=== PATIENT | male | born 1995 | race Two or more races ===

== ENCOUNTER 2024-08-18 11:46 | Emergency (ER) | payer MEDICAID, SELFPAY ==
--- NOTE | 2024-08-18 12:01 | XR_ITS ---
Examination: Testicular sonography complete TECHNIQUE: Multiple high resolution grayscale sonographic images testes, assessment arterial inflow venous outflow Doppler spectral analysis color flow analysis Exam date and time: August 18, 2024 1219 hours INDICATIONS: Onset testicular pain beginning yesterday worse today FINDINGS: Right testis 3.5 x 2.1 x 3.1 cm Epididymis 14 mm Arterial flow testicle. No testicular mass Mild to moderate right hydrocele Left testis 3.8 x 2.1 x 2.7 cm Epididymis 14 mm Arterial flow testicle. No testicular mass Mild hydrocele with debris IMPRESSION: No testicular torsion or testicular mass Bilateral hydroceles as above
[2024-08-18 12:02] VITALS: BP 129/92; PULSE 77; RESP 18; TEMP 36.8; O2SAT 99; BMI 25.2
--- NOTE | 2024-08-18 12:02 | XR_ITS ---
Examination: CT abdomen and pelvis without contrast. Coronal 3-D reconstructions. Sagittal 2-D reconstructions. Date and time of exam:August 18, 2024 1211 hours INDICATIONS: Bilateral testicular pain beginning one week ago CTDI: vol (mGy): 6.07 DLP: (mGycm): 349 Technique: Axial images of the abdomen have been obtained, 3 mm slice thickness Intravenous contrast material has not been administered. Low dose protocols were performed. One or more of the following dose reduction techniques were used; automated exposure control, adjustment of the mA and/or KV according to patient size, use of iterative reconstruction technique. Findings: No focal liver or splenic lesions Contracted gallbladder no pancreatic mass Mild left hydronephrosis however no renal or ureteral calculi No bowel obstruction Normal appendix No diverticulitis No bladder mass or bladder calculi Intact osseous structures IMPRESSION: Mild left hydronephrosis, no renal or ureteral calculi, consider left urinary tract infection
--- NOTE | 2024-08-18 12:02 | PD.EDRME ---
Rapid Medical Screening Exam RME Arrival date/time: 08/18/24 11:46 28-year-old male presents emergency department complaints of testicular pain and abdominal pain ongoing since yesterday morning Chief Complaint: Abdominal Pain Time Seen by Provider: 08/18/24 11:53
[2024-08-18] MEDS: KETOROLAC INJ 30 MG/ML VIAL IM (12:55)
[2024-08-18] MEDS: HYDROcodone/APAP 5/325 TABLET 1 TAB PO ×2 (12:57→19:22)
[2024-08-18 13:09] LABS: Basophils % (Auto) 0 % (0-2.5); Eosinophils # (Auto) 0.2 Thou/mm3 (0.0-0.5); Eosinophils % (Auto) 2 % (0-10); Hematocrit 46.5 % (41.0-53.0); Hemoglobin 15.5 g/dL (13.5-16.0); Immature Granulocytes % (Auto) 0 % (0-0); Immature Granulocytes Auto 0.02 Thou/mm3 (0.00-0.00); Lymphocytes # (Auto) 2.1 Thou/mm3 (1.0-4.8); Lymphocytes % (Auto) 24 % (10-50); Mean Corpuscular HGB Conc 33.3 g/dl (31.0-37.0); Mean Corpuscular Hemoglobin 27.8 pg (25.0-35.0); Mean Corpuscular Volume 84 fL (80-100); Monocytes # (Auto) 0.7 Thou/mm3 (0.0-0.8); Monocytes % (Auto) 8 % (0-12); Neutrophils # (Auto) 5.7 Thou/mm3 (1.8-7.7); Neutrophils % (Auto) 65 % (37-80); Nucleated Red Blood Cell % 0 /100 WBC (0); Platelet Count 261 Thou/mm3 (140-440); RDW Standard Deviation 41.2 fL (35.1-43.9); Red Blood Count 5.57 Miln/mm3 (4.50-5.90); White Blood Count 8.8 Thou/mm3 (3.8-10.6)
[2024-08-18 13:33] LABS: Alanine Aminotransferase 19 U/L (10-49); Albumin, Serum 5.1 gm/dL (3.5-5.0); Albumin/Globulin Ratio 1.6 (1.2-2.2); Alkaline Phosphatase 87 U/L (46-116); Anion Gap 5 (7-16); Aspartate Amino Transferase 24 U/L (0-34); BUN/Creatinine Ratio 9 Ratio (12-20); Bilirubin,Total 0.6 mg/dL (0.3-1.2); Blood Urea Nitrogen 11 mg/dL (9-23); Calcium 10.2 mg/dL (8.3-10.6); Calcium (Corrected) 10.2 mg/dL (8.5-10.1); Chloride 100 mMol/L (98-107); Creatinine (Component) 1.2 mg/dL (0.6-1.3); Estimated Creatinine Clearance 87.1 mL/min (>60); Globulin 3.2 gm/dL (2.3-3.5); Glucose 120 mg/dL (74-106); Lipase 41 U/L (12-53); Osmolality,Calculated 272 (275-295); Sodium 136 mMol/L (136-145); Total Protein 8.3 gm/dL (5.7-8.2); eGFR > 60 See Note
[2024-08-18 17:07] VITALS: BP 132/87; PULSE 64; RESP 16; TEMP 36.8; O2SAT 97
[2024-08-18 17:32] LABS: Collection Type, Urine Clean Catch; Squamous Epithelial Cell,Urine 0 /hpf (0-5)
[2024-08-18 18:25] LABS: Bilirubin,Urine Negative (Negative); Blood,Urine Negative (Negative); Clarity,Urine Clear (Clear/Hazy); Color,Urine Colorless (Lt Yel-Yel); Culture Indicated,Urine Not Indicated; Glucose, Urine Negative (Negative); Ketones,Urine Negative (Negative); Leukocyte Esterase,Urine Negative (Negative); Nitrite,Urine Negative (Negative); Protein,Urine Negative (Neg - Trace); RBC,Urine < 1 /hpf (0-3); Specific Gravity,Urine 1.011 (1.001-1.035); Urobilinogen,Urine Negative mg/dL (0.0-1.0); WBC,Urine < 1 /hpf (0-5)
--- NOTE | 2024-08-18 19:05 | PD.EDABDPN ---
ED Abdominal Pain RME/HPI General Chief Complaint: Abdominal Pain Stated complaint: Abdominal pain, testicular pain Time seen by provider: 08/18/24 11:53 Arrival date/time: 08/18/24 11:46 This is a 28-year-old male that comes in with complaints of diffuse abdominal pain that radiated to his testicle and right groin area. Patient states pain started this morning. Patient denies any trauma. Patient denies any past medical history. Limitations: no limitations RME / HPI RME / HPI narrative: 08/18/24 11:46 28-year-old male presents emergency department complaints of testicular pain and abdominal pain ongoing since yesterday morning Related Data Previous Rx's ?Medication ?Instructions ?Recorded cephalexin 500 mg capsule 500 mg PO TID #21 caps 08/18/24 ibuprofen 800 mg tablet 800 mg PO Q8H #14 tabs 08/18/24 Allergies Allergy/AdvReac Type Severity Reaction Status Date / Time No Known Allergies Allergy Verified 08/18/24 11:53 Review of Systems Review of Systems Systems Reviewed: All systems reviewed, normal except as documented Past Medical History Past Medical History Comments PMH COMMENT: denies ED Exam General Limitations: Present no limitations General appearance: Present alert and in no apparent distress Head Head exam: Present atraumatic Eye Eye exam: Present normal appearance, PERRL and EOMI ENT ENT exam: Present normal exam, normal oropharynx and mucous membranes moist Neck Neck exam: Present normal inspection, full ROM and trachea midline Chest Chest inspection: Present normal inspection and symmetric chest wall rise Respiratory Respiratory exam: Present normal lung sounds bilaterally Cardiovascular Cardiovascular exam: Present regular rate, normal rhythm and normal heart sounds Abdominal Exam Abdominal exam: Present soft exam: Present normal inspection and other (no testicular tenderness, no erythema, no swelling) Extremities Exam Extremities exam: Present normal inspection and full ROM Back Exam Back exam: Present normal inspection and full ROM Neurological Exam Neurological exam: Present alert, oriented X3 and CN II-XII intact Psychiatric Psychiatric exam: Present normal affect and normal mood Skin Skin exam: Present warm, dry, intact and normal color Course Quality Measures none Orders Category Date Time Status CT abdomen pelvis wo con Stat Exams 08/18/24 12:02 Completed US testicular Stat Exams 08/18/24 12:01 Completed CBC Stat Lab 08/18/24 13:03 Completed Comprehensive Metabolic Panel Stat Lab 08/18/24 13:03 Completed Lipase Stat Lab 08/18/24 13:03 Completed UA, C/S IF [Urinalysis, C/S if Indicated] Stat Lab 08/18/24 17:12 Completed HYDROcodone*/APAP 5/325 [[place] 5/325] Med 08/18/24 12:01 Discontinued 1 tab PO X1 ONE HYDROcodone*/APAP 5/325 [[place] 5/325] Med 08/18/24 19:06 Discontinued 1 tab PO X1 ONE HYDROmorphone INJ [Dilaudid Inj] Med 08/18/24 19:04 Discontinued 1 mg IM X1 ONE Ketorolac Inj [Toradol Inj] Med 08/18/24 12:01 Discontinued 30 mg IM X1 ONE Ketorolac Inj [Toradol Inj] Med 08/18/24 19:04 Discontinued 30 mg IM X1 ONE Metoclopramide Inj [Reglan Inj] Med 08/18/24 19:04 Discontinued 10 mg IM X1 ONE cefTRIAXone [Rocephin] 1,000 mg Med 08/18/24 18:58 Discontinued Lidocaine 1% 20 ml [Xylocaine 1% 20 ML] 2.1 ml IM X1 Vital Signs Vital signs: Vital Signs Temperature 98.3 F 08/18/24 12:02 Pulse Rate 77 08/18/24 12:02 Respiratory Rate 18 08/18/24 12:02 Blood Pressure 129/92 H 08/18/24 12:02 Pulse Oximetry (%) 99 08/18/24 12:02 Oxygen Delivery Method Room Air 08/18/24 12:02 Abdominal Pain MDM MDM Narrative MDM Narrative:: This is a 28-year-old male that comes in with complaints of diffuse abdominal pain that radiated to his testicle and right groin area. Patient states pain started this morning. Patient denies any trauma. Patient denies any past medical history. testicular US: FINDINGS: Right testis 3.5 x 2.1 x 3.1 cm Epididymis 14 mm Arterial flow testicle. No testicular mass Mild to moderate right hydrocele Left testis 3.8 x 2.1 x 2.7 cm Epididymis 14 mm Arterial flow testicle. No testicular mass Mild hydrocele with debris IMPRESSION: No testicular torsion or testicular mass Bilateral hydroceles as above CT abdomen and pelvis: [facility] [address] [place] [address] [facility] Report Signed Patient: MONIQUE BAE Record#: [id number] Birthdate: 1995 Age/Sex: 28 / M Location: [facility] Attending Dr: Ordering Physician: Yoli GONSALEZ)Mariano NP Date of Service: 08/18/24 Procedure(s): CT abdomen pelvis wo con Accession Number(s): [id number] cc: Yoli GONSALEZ),Mariano MARKS; Delvin Frankel MD~ Examination: CT abdomen and pelvis without contrast. Coronal 3-D reconstructions. Sagittal 2-D reconstructions. Date and time of exam:August 18, 2024 1211 hours INDICATIONS: Bilateral testicular pain beginning one week ago CTDI: vol (mGy): 6.07 DLP: (mGycm): 349 Technique: Axial images of the abdomen have been obtained, 3 mm slice thickness Intravenous contrast material has not been administered. Low dose protocols were performed. One or more of the following dose reduction techniques were used; automated exposure control, adjustment of the mA and/or KV according to patient size, use of iterative reconstruction technique. Findings: No focal liver or splenic lesions Contracted gallbladder no pancreatic mass Mild left hydronephrosis however no renal or ureteral calculi No bowel obstruction Normal appendix No diverticulitis No bladder mass or bladder calculi Intact osseous structures IMPRESSION: Mild left hydronephrosis, no renal or ureteral calculi, consider left urinary tract infection Patient given norco and toradol for pain. Pt tx with rocephin. Pt told to follow up with primary provider in 1-2 days. Pt told to come back to ED if symptoms change or worsen. Patient data External records reviewed:: [facility] previous records Clinical information provided by:: patient Social determinants that could affect healthcare access:: none Patient has the following chronic illnesses:: none How is presenting disease/condition affected by chronic disease/condition?: no chronic disease Evaluation data The following diagnostics were reviewed and interpreted by me:: lab results and radiology exam(s) Lab and/or radiology exams considered but not ordered:: none see note Interpretation Summary: see note Medications / Prescriptions Medications or Prescriptions considered but not ordered:: none Medication administrations:: Medication Administration History Discontinued Medications Hydrocodone Bitart/Acetaminophen (Hydrocodone/Apap 5/325 Tablet) 1 tab PO X1 ONE Stop: 08/18/24 12:02 Last Admin: 08/18/24 12:57 Dose: 1 tab Documented By: FABIEN Hydrocodone Bitart/Acetaminophen (Hydrocodone/Apap 5/325 Tablet) 1 tab PO X1 ONE Stop: 08/18/24 19:07 Last Admin: 08/18/24 19:22 Dose: 1 tab Documented By: BARBARA Ceftriaxone Sodium 1,000 mg/ (Lidocaine HCl 2.1 ml) 0 mg IM X1 ONE Stop: 08/18/24 18:59 Last Admin: 08/18/24 19:24 Dose: 1,000 mg Documented By: BARBARA Hydromorphone HCl (Hydromorphone Inj 2 Mg/Ml Vial) 1 mg IM X1 ONE Stop: 08/18/24 19:05 Ketorolac Tromethamine (Ketorolac Inj 30 Mg/Ml Vial) 30 mg IM X1 ONE Stop: 08/18/24 12:02 Last Admin: 08/18/24 12:55 Dose: 30 mg Documented By: FABIEN Ketorolac Tromethamine (Ketorolac Inj 60 Mg/2 Ml Vial) 30 mg IM X1 ONE Stop: 08/18/24 19:05 Last Admin: 08/18/24 19:22 Dose: 30 mg Documented By: BARBARA Metoclopramide HCl (Metoclopramide Inj 5 Mg/Ml Vial 2 Ml) 10 mg IM X1 ONE; Protocol Stop: 08/18/24 19:05 Last Admin: 08/18/24 19:31 Dose: Not Given Documented By: BARBARA Non-Admin Reason: Patient Refused see mar Consultations Consultation(s) initiated? (list below): No Diagnosis Differential diagnosis abdominal pain: abdominal pain, acute appendicitis, calculus of kidney, constipation and other (testicular torsion, ut) Most likely diagnosis given after review of the tests above:: none Admission Indicated Admission indicated?: not indicated Admission Request Was there a request for admission?: No Disposition Plan Disposition Plan: Discharge Discharge Attestation Discharge Attestation: The patient and all family members were given an opportunity to ask questions and understood the discharge instructions. Discharge instructions specifically effects, indications for sooner follow up or return to the emergency department, and the expected course of current diagnosis. Patient condition: Stable Discharge Plan Plan Patient Disposition: HOME (Self Care) Patient condition on transfer: Stable Prescriptions/Referrals Prescriptions/Med Rec: New ibuprofen 800 mg tablet 800 mg PO Q8H Qty: 14 0RF cephalexin 500 mg capsule 500 mg PO TID Qty: 21 0RF Referrals: No Primary/Family,Physician [Primary Care Provider] - In 1 week Problem List Clinical Impression: Abdominal pain, Hydronephrosis, Bilateral hydrocele Patient/Caregiver Discharge Instructions Discharge Activity: activity as tolerated Education Materials: Abdominal Pain Print Language: Divehi Stand Alone Forms: Pauly Award Info., Patient Portal Info Letter PA/REPAIR ARMATURE WINDER HELPER Supervising Physician PA/REPAIR ARMATURE WINDER HELPER Supervising Physician: manri
[2024-08-18] MEDS: KETOROLAC INJ 60 MG/2 ML VIAL 30 MG IM (19:22)
[2024-08-18] MEDS: cefTRIAXone 1,000 MG, LIDOCAINE 1% 20 ML 2.1 ML IM (19:24)
== END 2024-08-18 19:32 | disposition home or self-care (01) ==
PROVIDERS: Nurse Practitioner Primary Care; Emergency Provider Emergency Medicine
DX: N43.3 Hydrocele, unspecified (principal); N13.30 Unspecified hydronephrosis
CPT/HCPCS: 36415; 74176; 76870; 80053; 81001; 83690; 85025; 96372; 99284; J0696; J1885; J3490; A9270